=== PATIENT | female | born 1965 | race Caucasian/White ===

== ENCOUNTER 2022-04-08 17:25 | Emergency (ER) | payer OTHER, SELFPAY ==
[2022-04-08] VITALS (28 sets, daily range): BP systolic 123–162; BP diastolic 56–99; PULSE 76–80; RESP 15–18; TEMP 36.3; O2SAT 94–100
--- NOTE | ~2022-04-08 | CT_ITS ---
EXAMINATION: CT abdomen pelvis w con DATE: 04/08/2022 20:43 INDICATION: epigastric pain, N/V TECHNIQUE: Computed tomography (CT) of the abdomen and pelvis was performed with 100 mL Omnipaque-350 intravenous contrast. Automated exposure control and iterative reconstruction technique were employe d. The dose-length product was 963.01 mGy-cm. COMPARISON: 07/21/2012. FINDINGS: Lower thorax: Mild coronary artery calcification Liver: Mild intrahepatic biliary duct dilation, unchanged. Scattered cysts and lesions that are too s mall to characterize Biliary/Gallbladder: Gallbladder is absent. No extrahepatic bile duct dilation. Pancreas: No mass or duct dilation. Spleen: Normal. Adrenals:No mass. Kidneys: No mass, stone, or hydronephrosis. GI tract: Prior gastric bypass surgery. Uncomplicated appearing anastomoses. No small or large bowel dilation. Normal appendix. Mesentery/Peritoneum: No ascites, mass, or free air. Retroperitoneum: No mass. Pelvis: Pelvic organs are within normal limits. Soft Tissues: Lower abdominal subcutaneous contusion, possibly related to subcutaneous injections. Bones: No acute osseous finding. IMPRESSION: No acute abdominopelvic process detected. Reviewed, dictated and finalized at location K.
[2022-04-08 18:06] LABS: Alanine Aminotransferase 26 U/L (6-35); Albumin Level 4.6 g/dL (3.5-5.1); Alkaline Phosphatase 123 U/L (38-126); Anion Gap 8 mmol/L (8-16); Aspartate Amino Transferase 27 U/L (14-36); Bilirubin,Total 0.4 mg/dL (0.2-1.3); Blood Urea Nitrogen 12 mg/dL (7-17); Calcium 9.9 mg/dL (8.4-10.2); Carbon Dioxide 26 mmol/L (22-30); Chloride 104 mmol/L (98-107); Estimated CRCL calculation 91 ml/min; Estimated Glomerular Filt Rate > 60; Glucose 102 mg/dL (65-110); Lipase 152 U/L (23-300); Potassium 3.7 mmol/L (3.4-5.0); Sodium 138 mmol/L (137-145)
[2022-04-08 18:08] LABS: Basophils Percent Auto 0.2 % (0.2-1.2); Eosinophils Percent Auto 0.4 % (0-4.4); Hematocrit 40.2 % (37.0-47.0); Hemoglobin 13.6 g/dL (12.0-15.0); Immature Granulocyte Absolute 0.03 K/mm3 (0.00-0.031); Immature Granulocyte Percent A 0.4 % (0-0.5); Lymphocytes Percent Auto 7.1 % (18.3-44.2); Mean Corpuscular HGB Conc 33.8 g/dl (32-36); Mean Corpuscular Hemoglobin 29.5 pg (26-34); Mean Corpuscular Volume 87.2 fl (80-100); Mean Platelet Volume 9.8 fl (7.4-10.4); Monocytes Absolute Auto 0.3 K/mm3 (0.1-0.6); Monocytes Percent Auto 3.3 % (2.6-8.5); Neutrophils Absolute Auto 7.5 K/mm3 (1.3-6.7); Neutrophils Percent Auto 88.6 % (45.5-73.1); Platelet Count Result 276 k/mm3 (150-375); Red Blood Count 4.61 M/mm3 (4.2-5.4); Red Cell Distribution Width 12.5 % (11.5-14.5); White Blood Count 8.5 K/mm3 (4.5-10.0)
--- NOTE | 2022-04-08 19:24 | PC.NURSE ---
Patient report received from CHRIS George. All questions answered and care of patient assumed.
[2022-04-08 19:30] LABS: Appearance Urine Slightly Cloudy (Clear); Bilirubin Urine Negative (Negative); Color Urine Yellow (Yellow); Glucose Urine UA Negative (Negative); Ketones Urine Trace mg/dL (Negative); Leukocyte Esterase Ur Negative LEU/UL (Negative); Nitrate Urine Negative (Negative); Protein Urine Trace mg/dL (Negative); Specific Grav Ur 1.015 (1.001-1.035); Urobilinogen Urine 0.2 mg/dL (<2.0); pH Urine 8.5 (5.0-9.0)
[2022-04-08 19:37] LABS: Add Urine Microscopic? YES; Blood Urine Trace-Intact (Negative)
--- NOTE | 2022-04-08 19:38 | ED.NAVMDI ---
HPI - Nausea/Vomiting/Diarrhea General Chief complaint: Nausea/Vomiting/Diarrhea Stated complaint: N/V Time Seen by Provider: 04/08/22 18:12 Source: patient Mode of arrival: ambulatory Limitations: no limitations History of Present Illness HPI Narrative: Patient is a 56 y/o female, with a past medical history of ulcerative colitis and gastric bypass surgery, who presents to the ED with c/o nausea and vomiting. Patient reports she felt fine yesterday, but developed nausea and vomiting around 9 AM. She went to work, but continued to have vomiting and came back home. This afternoon she developed pain in her upper abdomen. She did not try anything for the pain. Unable to keep down any food or fluid, which prompted her presentation. Patient denies any diarrhea, constipation, dysuria, hematuria, fevers, chest pain, difficulty breathing, cough or cold symptoms. Related Data Allergies Allergy/AdvReac Type Severity Reaction Status Date / Time No Known Allergies Allergy Unverified 06/30/16 07:50 Review of Systems Review of Systems: CONSTITUTIONAL: Denies fever, chills, or sweats. ENT: Denies rhinorrhea, congestion, sore throat. CARDIOVASCULAR: Denies chest pain, palpitations. RESPIRATORY: Denies cough or dyspnea. GASTROINTESTINAL: Reports epigastric abdominal pain, nausea, vomiting. Denies constipation, rectal bleeding, diarrhea. GENITOURINARY: Denies dysuria or hematuria. All systems reviewed & are unremarkable except as noted in HPI and below PMFSH Past Medical History Medical History ADHD Depression GERD (gastroesophageal reflux disease) Ulcerative colitis Surgical History Surgical History (Updated 04/08/22 @ 21:33 by Katherine Latif PA-C) History of cholecystectomy History of gastric bypass Social History Social History (Updated 04/08/22 @ 21:33 by Katherine Latif PA-C) Smoking status: Never smoker Exam Narrative: GENERAL: Well appearing, well-nourished, non-toxic, in no acute distress. HEAD: Normocephalic, atraumatic. ENT: Pharynx clear, MM somewhat tacky. NECK: Supple. No adenopathy, no masses. RESPIRATORY: Airway patent, respirations nonlabored. Clear to auscultation bilaterally, no rales, rhonchi, wheezing. CARDIOVASCULAR: Regular rate and rhythm without murmurs, rubs, or gallops. Peripheral pulses 2+ and equal bilaterally. ABDOMINAL: Soft, tenderness to epigastric region and left upper quadrant. Nondistended, no hepatosplenomegaly. Normoactive BS. MUSCULOSKELETAL: Moves all extremities. Strength/ROM intact without gross deformities. SKIN: Warm, dry, normal color. No rashes. NEURO: A&O X3. Speech clear. Cranial nerves II-XII grossly intact. Steady gait. No ataxic movements. PSYCHIATRIC: Appropriate mood and affect. Normal interaction. Course Vital Signs Vital signs: Vital Signs Temperature 97.3 F L 04/08/22 17:33 Pulse Rate 76 04/08/22 17:33 Respiratory Rate 18 04/08/22 17:33 Blood Pressure 152/95 H 04/08/22 17:33 Pulse Oximetry 99 04/08/22 17:33 Oxygen Delivery Room Air 04/08/22 17:33 Temperature 97.3 F L 04/08/22 17:33 Pulse Rate 80 04/08/22 18:34 Respiratory Rate 15 04/08/22 18:34 Blood Pressure 148/92 H 04/08/22 23:01 Pulse Oximetry 95 04/08/22 23:01 Oxygen Delivery Room Air 04/08/22 17:33 MDM - Nausea/Vomiting/Diarrhea MDM Narrative Medical decision making narrative: Patient presented to ED with 1 day history of nausea and vomiting. Afebrile upon arrival. Laboratory evaluation unremarkable. CBC and CMP without acute findings. UA without signs of infection, but is showing some yeast. Given Diflucan dose in the ED. EKG unremarkable. Patient without chest pain or shortness of breath. CT scan of abdomen pelvis without acute intraabdominal findings Patient doing much better with supportive therapy. Able to tolerate p.o. intake. Discharge home. Advised close follow-up with ESTELLE
--- NOTE | 2022-04-08 19:40 | PC.NURSE ---
Patient resting quietly in stretcher. VSS. Patient continues to c/o nausea. Awaiting EDP evaluation and further orders. Call-light in reach. Will conitnue to address needs as they arise.
[2022-04-08 19:53] LABS: Budding Yeast Urine Present /hpf; Mucus Urine Rare /lpf; Squamous Epithelial Cell Urine Occasional /hpf (Few); WBC Urine 0-3 /hpf
[2022-04-08] MEDS: SODIUM CHLORIDE 0.9% IV 1,000 ML 999 ML IV CONT (20:15)
[2022-04-08] MEDS: ONDANSETRON INJ 4 MG/2 ML VIAL IV PUSH (20:15)
--- NOTE | 2022-04-08 20:31 | PC.NURSE ---
Patient off unit to CT.
--- NOTE | 2022-04-08 21:26 | PC.NURSE ---
Patient ambulatory to the BR with steady gait.
--- NOTE | 2022-04-08 21:28 | ECG_ITS ---
Measurements Intervals [place] Rate: 71 P: 42 ND: 174 QRS: -11 QRSD: 86 T: 22 QT: 387 QTc: 423 Interpretive Statements SINUS RHYTHM CONSIDER INFERIOR INFARCT, AGE INDETERMINATE BORDERLINE ST-T WAVE ABNORMALITY- ANTERIOR LEADS ABNORMAL ECG NO PRIOR ECG FOR COMPARISON Electronically Signed On 04-08-2022 21:52:28 CDT by Gino Melo D.O.
[2022-04-08] MEDS: BELLADONNA ALK/PHENOB ELIX 10 ML, MAG HYDROX/ALUMINUM HYD/SIMETH 30 ML, LIDOCAINE HCL 2... PO (22:12)
[2022-04-08] MEDS: PANTOPRAZOLE SODIUM IV 40 MG VIAL IV PUSH (22:13)
[2022-04-08] MEDS: PROMETHAZINE HCL 25 MG/ML AMPUL 12.5 MG IV PUSH (22:13)
[2022-04-08] MEDS: SODIUM CHLORIDE 0.9% IV 50 ML 150 ML (22:13)
[2022-04-08] MEDS: FLUCONAZOLE 150 MG TABLET PO (22:13)
== END 2022-04-08 23:43 | disposition home or self-care (01) ==
PROVIDERS: Emergency Provider Emergency Medicine; PCP Nurse Practitioner Adult Health
DX: K52.9 Noninfective gastroenteritis and colitis, unspecified (principal); K21.9 Gastro-esophageal reflux disease without esophagitis; Z98.84 Bariatric surgery status; F90.9 Attention-deficit hyperactivity disorder, unspecified type; K51.90 Ulcerative colitis, unspecified, without complications; F32.A Depression, unspecified
CPT/HCPCS: 36415; 74177; 80053; 81001; 83690; 85025; 93005; 96365; 96375; 99284; A9270; C9113; J0131; J2405; J2550; J7030; Q9967